=== PATIENT | female | born 1990 | race American Indian/Alaskan Native ===

== ENCOUNTER 2016-09-07 06:33 | Emergency (ER) | payer MEDICAID ==
[2016-09-07 07:21] VITALS: BMI 32.0
[2016-09-07 07:24] VITALS: O2SAT 100
--- NOTE | 2016-09-07 08:32 | ED PDOC ---
Arrival/HPI - General Chief Complaint: Lower Extremity Problem/Injury Time Seen by Provider: 09/07/16 08:28 Historian: Patient - History of Present Illness Narrative History of Present Illness (Text): 09/07/16 11:27 26-year-old female in emergency department after a mechanical fall. States this happened just before she came to the emergency department. Now patient is complaining of left ankle, left foot, and right knee pain. Denies any head trauma or torso trauma/injury. Denies any upper extremity injury. Symptom Course: Unchanged Activities at Onset: Rest Past Medical History - Provider Review Nursing Documentation Reviewed: Yes - Past History Past History: No Previous - Infectious Disease Hx of Infectious Diseases: None - Tetanus Immunization Tetanus Immunization: Unknown - Past Medical History Past Medical History: No Previous - Hematological/Oncological Hx Anemia: Yes - Musculoskeletal/Rheumatological Hx Musculoskeletal Disorders: Yes Other/Comment: Patients states that she has been told her "spine is crooked". - Gastrointestinal Other/Comment: pre menstrual cramps - Psychiatric Hx Depression: No Hx Emotional Abuse: No Hx Physical Abuse: No Hx Substance Use: No - Past Surgical History Past Surgical History: No Previous - Anesthesia Hx Anesthesia: No Hx Anesthesia Reactions: No Hx Malignant Hyperthermia: No - Suicidal Assessment Feels Threatened In Home Enviroment: No Family/Social History - Physician Review Nursing Documentation Reviewed: Yes Family/Social History: No Known Family HX Smoking Status: Light Smoker < 10 Cigarettes Daily Hx Alcohol Use: No Hx Substance Use: No Hx Substance Use Treatment: No Allergies/Home Meds Allergies/Adverse Reactions: Allergies No Known Allergies Allergy (Verified 09/07/16 07:21) Home Medications: Home Meds Medication Instructions Recorded Confirmed Ferrous Sulfate [Ferosul] 325 mg PO DAILY 03/29/16 09/07/16 Review of Systems - Physician Review All systems were reviewed & negative as marked: Yes Physical Exam - Physical Exam Narrative Physical Exam (Text): 09/07/16 11:29 - Review of Systems Constitutional: Normal. absent: Fatigue, Weight Change, Fevers Eyes: Normal ENT: denies sore throat, denies tristhmus Respiratory: Normal. absent: SOB, Cough, Sputum Cardiovascular: absent: Chest Pain, Palpitations, Syncope Gastrointestinal: Normal. absent: Abdominal Pain, Diarrhea, Nausea, Vomiting Genitourinary: Normal. absent: Dysuria, Frequency, Hematuria, vaginal bleeding Musculoskeletal: Full absent: Back Pain, Neck Pain Skin: no rashes, no erythema Neurological: absent: Focal Weakness Endocrine: Normal Hemo/Lymphatic: Normal Psychiatric: No suicidal or homicidal ideations Physical exam Patient appears age appropriate in no distress, speaking full sentences without difficulty Head atraumatic. No nasal bone deformity or tenderness, no facial or jaw pain/ swelling. No neck midline tenderness, thoracic and lumbar spine with no midline tenderness. Pt moving b/l upper and lower extremities without difficulty, 5/5 strength, with full active and passive ROM. Distal neurovasc fully intact. Abd soft/nt/ng, no hematomas, no peritoneal signs. Neg. pelvic rock. - Systems Exam Head: Present: Atraumatic, Normocephalic Pupils: Present: PERRL Extroacular Muscles: Present: EOMI Conjunctiva: Present: Normal Mouth: Present: Moist Mucous Membranes Neck: Present: Normal Range of Motion. No: MIDLINE TENDERNESS, Paraspinal Tenderness Respiratory/Chest: Present: Clear to Auscultation, Good Air Exchange. No: Respiratory Distress, Accessory Muscle Use, Tachypneic Cardiovascular: Present: Regular Rate and Rhythm, Normal S1, S2, Peripheal Pulses Present. No: Murmurs Abdomen: Present: Normal Bowel Sounds. No: Tenderness, Distention, Peritoneal Signs, Rebound, Guarding Back: Present: Normal Inspection. No: Midline Tenderness, Paraspinal Tenderness Upper Extremity: Present: Normal Inspection. No: Cyanosis, Edema Lower Extremity: Present: Normal Inspection. No: Edema Neurological: Present: GCS=15, Speech Normal, cranial nerves II through XII fully intact with no cerebellar abnormality, neurosensory fully intact. No focal neurological deficits. Skin: Present: Warm, Dry, Normal Color. No: Rashes Lymphatic: Present: OX3, NI, NC Psychiatric: Present: Alert, Oriented x 3, Normal Insight, Normal Concentration Vital Signs Reviewed: Yes Vital Signs Temp Pulse Resp BP Pulse Ox 09/07/16 11:40 79 18 115/75 100 09/07/16 10:24 98.4 F 88 18 113/76 100 09/07/16 07:24 98.2 F 86 17 105/69 100 Temperature: Afebrile Blood Pressure: Normal Pulse: Regular Respiratory Rate: Normal Appearance: Positive for: Well-Appearing, Non-Toxic, Comfortable Pain Distress: None Mental Status: Positive for: Alert and Oriented X 3 Medical Decision Making ED Course and Treatment: 09/07/16 08:31 Impression: 26yo female in the ER after a mechanical fall, with L. ankle and foot pain, R. knee pain On physical exam, patient no acute findings. It has no pain at the base of fifth metatarsal on the left, left ankle with full active and passive range of motion with no tenderness over the ATF. Patient's right knee with full active and passive range of motion with negative anterior and posterior drawer tests. Bilateral lower extremities with distal neurovascular fully intact. Patient ambulating in the emergency department with steady gait. Differential Diagnosis include but are not limited to: Sprain versus strain versus fracture Plan: -- Radiology- L ankle, L foot, R knee, R knee w patella -- Reassess and disposition Prior Visits: Notes and results from previous visits were reviewed. Patient last seen in the ED on 07/26/16 for evaluation of left sided abdominal pain and nausea. Patient was discharged with H2 lissett, advised close follow up with gynecology and PMD. Progress Notes: Radiology- Left ankle: Creator : David Abernathy MD IMPRESSION: Normal left ankle radiographs. Left foot: Creator : David Abernathy MD IMPRESSION: Normal left foot radiographs. Right knee: Creator : David Abernathy MD IMPRESSION: Normal radiographs of the right knee. 09/07/16 11:25 No acute findings on patient's radiology reports Aircast and crutches provided had an extensive d/w pt that although xrays are negative for any acute bony abnormality, it is still very important to fu with pmd and ortho specialist for further w/u and testing such as MRI to r/o any ligamentous/tendenous/meniscal injury. Pt verbalized full understanding of above discussion. Pt states she understands to return to the ER right away for new or worsening symptoms or for inability to f/u with PMD or specialist as instructed. Patient states that she fully agrees with and understands discharge instructions. States that she agrees with the plan and disposition. Verbalized and repeated discharge instructions and plan. I have given the patient opportunity to ask any additional questions. - RAD Interpretation Radiology Orders: 09/07/16 08:28 ANKLE LEFT 3 VIEWS ROUTINE [RAD] Stat FOOT LEFT 3 VIEWS ROUTINE [RAD] Stat 09/07/16 08:37 KNEE RIGHT 2 VIEWS (AP & LAT) [RAD] Stat - Scribe Statement The provider has reviewed the documentation as recorded by the Scribe Stephanie Osman All medical record entries made by the Scribe were at my direction and personally dictated by me. I have reviewed the chart and agree that the record accurately reflects my personal performance of the history, physical exam, medical decision making, and the department course for this patient. I have also personally directed, reviewed, and agree with the discharge instructions and disposition. Disposition/Present on Arrival - Present on Arrival Any Indicators Present on Arrival: No History of DVT/PE: No History of Uncontrolled Diabetes: No Urinary Catheter: No History of Decub. Ulcer: No History Surgical Site Infection Following: None - Disposition Have Diagnosis and Disposition been Completed?: Yes Diagnosis: Fall Disposition: HOME/ ROUTINE Disposition Time: 11:30 Patient Plan: Discharge Condition: GOOD Discharge Instructions (ExitCare): Foot Sprain (ED) Additional Instructions: PLEASE RETURN TO THE EMERGENCY DEPARTMENT FOR NEW OR WORSENING SYMPTOMS. RETURN RIGHT AWAY IF YOU CANNOT FOLLOW UP WITH YOUR PRIMARY CARE DOCTOR, CLINIC, OR SPECIALIST IN 1-2 DAYS. Please take [id number] Motrin or Tylenol for pain Referrals: PCP,NO [Primary Care Provider] - Follow up with primary David Arguello DO [Staff Provider] - Follow up with primary Forms: WORK NOTE
[2016-09-07 10:25] VITALS: RESP 18; TEMP 98.4
--- NOTE | 2016-09-07 11:01 | RAD ---
PROCEDURE: Left Foot Radiographs. HISTORY: pain COMPARISON: None. FINDINGS: BONES: Normal. No fracture. JOINTS: Normal. SOFT TISSUES: Normal. OTHER FINDINGS: None. IMPRESSION: Normal left foot radiographs.
--- NOTE | 2016-09-07 11:02 | RAD ---
PROCEDURE: Left Ankle Radiographs. HISTORY: pain COMPARISON: None FINDINGS: BONES: Normal. No fracture. JOINTS: Normal. No osteoarthritis. Ankle mortise maintained. Talar dome intact SOFT TISSUES: Normal. OTHER FINDINGS: None. IMPRESSION: Normal left ankle radiographs.
--- NOTE | 2016-09-07 11:02 | RAD ---
PROCEDURE: Right Knee Radiographs. HISTORY: knee pain COMPARISON: None. FINDINGS: BONES: Normal. No fracture. JOINTS: Normal. No osteoarthritis. JOINT EFFUSION: None. OTHER FINDINGS: None. IMPRESSION: Normal radiographs of the right knee.
[2016-09-07 11:41] VITALS: BP 115/75; PULSE 79
== END 2016-09-07 11:56 | disposition home or self-care (01) ==
LOC: ED 06:33
DX: S93.602A Unspecified sprain of left foot, initial encounter (principal); W19.XXXA Unspecified fall, initial encounter; Y92.9 Unspecified place or not applicable

== ENCOUNTER 2017-01-07 11:05 | Emergency (ER) | payer MEDICAID, OTHER ==
[2017-01-07 11:12] VITALS: BMI 33.2
[2017-01-07 11:14] VITALS: TEMP 98.5
--- NOTE | 2017-01-07 11:33 | ED PDOC ---
Arrival/HPI - General Chief Complaint: Chest Pain Time Seen by Provider: 01/07/17 11:09 Historian: Patient - History of Present Illness Narrative History of Present Illness (Text): 01/07/17 11:26 A 26 year old female with no known past medical history, presents to the emergency department with shortness of breath for several weeks and chest discomfort since this morning. She denies fevers, chills, nausea, vomiting, diarrhea, abdominal pain, [place], dizziness, cough or any other complaint. pt has not see her pmd. pt states pain and symtpoms are intermittant w/o inciting factor. no smoking, no family cardiac hx. 01/07/17 12:35 Time/Duration: Other (Several weeks) Symptom Onset: Sudden Symptom Course: Unchanged Quality: Pressure Activities at Onset: Rest, Light Context: Home Past Medical History - Provider Review Nursing Documentation Reviewed: Yes - Past History Past History: No Previous - Infectious Disease Hx of Infectious Diseases: None - Tetanus Immunization Tetanus Immunization: Unknown - Past Medical History Past Medical History: No Previous - Cardiac Hx Cardiac Disorders: No - Pulmonary Hx Respiratory Disorders: No - Neurological Hx Neurological Disorder: No - HEENT Hx HEENT Disorder: No - Renal Hx Renal Disorder: No - Endocrine/Metabolic Hx Endocrine Disorders: No - Hematological/Oncological Hx Blood Disorders: Yes Hx Anemia: Yes - Integumentary Hx Dermatological Disorder: No - Musculoskeletal/Rheumatological Hx Musculoskeletal Disorders: Yes Other/Comment: Patients states that she has been told her "spine is crooked". - Gastrointestinal Hx Gastrointestinal Disorders: No Other/Comment: pre menstrual cramps - Genitourinary/Gynecological Hx Genitourinary Disorders: No - Psychiatric Hx Depression: No Hx Emotional Abuse: No Hx Physical Abuse: No Hx Substance Use: No - Past Surgical History Past Surgical History: No Previous - Anesthesia Hx Anesthesia: No Hx Anesthesia Reactions: No Hx Malignant Hyperthermia: No - Suicidal Assessment Feels Threatened In Home Enviroment: No Family/Social History - Physician Review Nursing Documentation Reviewed: Yes Family/Social History: No Known Family HX Smoking Status: Light Smoker < 10 Cigarettes Daily Hx Alcohol Use: No Hx Substance Use: No Hx Substance Use Treatment: No Allergies/Home Meds Allergies/Adverse Reactions: Allergies No Known Allergies Allergy (Verified 01/07/17 11:12) Review of Systems - Physician Review All systems were reviewed & negative as marked: Yes - Review of Systems Constitutional: absent: Fevers, Night Sweats Respiratory: SOB. absent: Cough Cardiovascular: Chest Pain (Pressure) Gastrointestinal: absent: Abdominal Pain, Diarrhea, Nausea, Vomiting Neurological: absent: Headache, Dizziness Physical Exam Vital Signs Reviewed: Yes Vital Signs Temp Pulse Resp BP Pulse Ox 01/07/17 11:05 98.5 F 88 19 130/82 100 Temperature: Afebrile Blood Pressure: Normal Pulse: Regular Respiratory Rate: Normal Appearance: Positive for: Well-Appearing, Non-Toxic, Comfortable Pain Distress: None Mental Status: Positive for: Alert and Oriented X 3 - Systems Exam Head: Present: Atraumatic, Normocephalic Pupils: Present: PERRL Extroacular Muscles: Present: EOMI Conjunctiva: Present: Normal Mouth: Present: Moist Mucous Membranes Neck: Present: Normal Range of Motion Respiratory/Chest: Present: Clear to Auscultation, Good Air Exchange, Tender to Palpation (mild chest wall tenderness). No: Respiratory Distress, Accessory Muscle Use Cardiovascular: Present: Regular Rate and Rhythm, Normal S1, S2. No: Murmurs Abdomen: Present: Normal Bowel Sounds. No: Tenderness, Distention, Peritoneal Signs Back: Present: Normal Inspection Upper Extremity: Present: Normal Inspection. No: Cyanosis, Edema Lower Extremity: Present: Normal Inspection. No: Edema Neurological: Present: GCS=15, CN II-XII Intact, Speech Normal Skin: Present: Warm, Dry, Normal Color. No: Rashes Psychiatric: Present: Alert, Oriented x 3, Normal Insight, Normal Concentration Medical Decision Making ED Course and Treatment: 01/07/17 11:34 Impression: A 26 year old female with SOB for several weeks and chest discomfort since this morning. Plan: -- EKG -- CXR -- UA -- Labs -- Tylenol EKG: Read and interpreted by me. Rate: 79 Rhythm: NSR Intervals: ST/T wave changes CHEST X-RAY Dictator : David Abernathy MD Report Date : 01/07/2017 12:23:25 LUNGS: No active pulmonary disease. 01/07/17 12:36 pt in nad in bed, on phone, watching tv. labs cxr unremarkable. dimer neg. ekg no changes, pt young, no cardiac risk factors. acs unlikely. advse outpt fu return precautions - Lab Interpretations Lab Results: 01/07/17 12:00 01/07/17 12:00 Lab Results 01/07/17 12:00: Urine HCG, Qual Negative 01/07/17 12:00: PT 10.9, INR 1.01, APTT 28.4, D-Dimer, Quantitative 0.29 01/07/17 12:00: Sodium 142, Potassium 3.9, Chloride 106, Carbon Dioxide 27, Anion Gap 13, BUN 11, Creatinine 0.8, Est GFR ( Amer) > 60, Est GFR (Non- Af Amer) > 60, Random Glucose 70, Calcium 9.2, Total Bilirubin 0.3, AST 28, ALT 27, Alkaline Phosphatase 88, Total Protein 7.4, Albumin 3.8, Globulin 3.6, Albumin/Globulin Ratio 1.1 01/07/17 12:00: Urine Color Yellow, Urine Appearance Clear, Urine pH 6.5, Ur Specific [place] 1.020, Urine Protein Negative, Urine Glucose (UA) Negative, Urine Ketones Trace H, Urine Blood Trace-lysed H, Urine Nitrate Negative, Urine Bilirubin Negative, Urine Urobilinogen 0.2, Ur Leukocyte Esterase Negative, Urine RBC Pending, Urine WBC Pending 01/07/17 12:00: WBC 9.2, RBC 4.63, Hgb 10.3 L, Hct 33.0 L, MCV 71.3 L, MCH 22.2 L, MCHC 31.2, RDW 17.4 H, Plt Count 319, MPV 9.5, Gran % 73.1 H, Lymph % (Auto) 19.0 L, [place] % (Auto) 6.3 H, Eos % (Auto) 1.3 L, Baso % (Auto) 0.3, Gran # 6.74 H, Lymph # 1.8, [place] # 0.6, Eos # 0.1, Baso # 0.03 I have reviewed the lab results: Yes - RAD Interpretation Radiology Orders: 01/07/17 11:23 CHEST PORTABLE [RAD] Stat - EKG Interpretation Interpreted by ED Physician: Yes Type: 12 lead EKG - Medication Orders Current Medication Orders: Discontinued Medications Acetaminophen (Tylenol 325mg Tab) 975 mg PO STAT STA Stop: 01/07/17 11:25 Last Admin: 01/07/17 11:38 Dose: 975 mg - Scribe Statement The provider has reviewed the documentation as recorded by the Jorge Tejada Provider Scribe Attestation: All medical record entries made by the Jorge were at my direction and personally dictated by me. I have reviewed the chart and agree that the record accurately reflects my personal performance of the history, physical exam, medical decision making, and the department course for this patient. I have also personally directed, reviewed, and agree with the discharge instructions and disposition Disposition/Present on Arrival - Present on Arrival Any Indicators Present on Arrival: No History of DVT/PE: No History of Uncontrolled Diabetes: No Urinary Catheter: No History of Decub. Ulcer: No History Surgical Site Infection Following: None - Disposition Have Diagnosis and Disposition been Completed?: Yes Diagnosis: Chest pain Disposition: HOME/ ROUTINE Disposition Time: 12:36 Patient Problems: Current Active Problems Problem Status Onset Chest pain Acute Condition: STABLE Discharge Instructions (ExitCare): Chest Pain (ED) Additional Instructions: please follow up with specialist. return to er with worsening symptoms or concerns. Prescriptions: Naproxen 500 mg PO BID PRN #14 tab PRN Reason: Pain, Mild (1-3) Referrals: Esther Garay MD [Primary Care Provider] - Follow up with primary David Garcia MD [Staff Provider] - Follow up with primary [facility] [Outside] - Follow up with primary [facility] [Outside] - Follow up with primary Forms: [employer] (Indonesian)
[2017-01-07 12:04] LABS: BASO # 0.03 K/mm3 (0.0-2.0); BASO % 0.3 % (0.0-3.0); EOS # 0.1 (0.0-0.7); EOS % 1.3 % (1.5-5.0); GRAN # 6.74 (1.4-6.5); GRAN % 73.1 % (50.0-68.0); LYMPH # 1.8 (1.2-3.4); MEAN CELL VOLUME 71.3 fl (80.0-105.0); MEAN CORPUSCULAR HEMOGLOBIN 22.2 pg (25.0-35.0); MEAN CORPUSCULAR HGB CONC 31.2 g/dl (31.0-37.0); MEAN PLATELET VOLUME 9.5 fl (7.0-11.0); MONO # 0.6 (0.1-0.6); MONO % 6.3 % (1.0-6.0); RED CELL DISTRIBUTION WIDTH 17.4 % (11.5-14.5); WHITE BLOOD COUNT 9.2 10^3/ul (4.5-11.0)
[2017-01-07 12:11] LABS: PH,URINE 6.5 (4.7-8.0); URINE BILIRUBIN NEGATIVE (NEGATIVE); URINE BLOOD TRACE-LYSED (NEGATIVE); URINE GLUCOSE (UA) NEGATIVE (NEGATIVE); URINE KETONE TRACE mg/dL (NEGATIVE); URINE LEUKOCYTE ESTERASE NEGATIVE Leu/uL (NEGATIVE); URINE PROTEIN NEGATIVE mg/dL (<30 mg/dL); URINE UROBILINOGEN 0.2 E.U./dL (<1 E.U./dL)
[2017-01-07 12:16] LABS: ALB/GLOB RATIO 1.1 (1.1-1.8); ALKALINE PHOSPHATASE 88 U/L (38-133); ALT/SGPT 27 U/L (7-56); AST/SGOT 28 U/L (15-39); BILIRUBIN,TOTAL 0.3 mg/dL (0.2-1.3); BLOOD UREA NITROGEN 11 mg/dL (7-21); CALCIUM 9.2 mg/dL (8.4-10.5); CARBON DIOXIDE 27 mmol/L (21-33); CHLORIDE 106 mmol/L (98-107); GFR AFRICAN-AMERICAN > 60; GLUCOSE,RANDOM 70 mg/dL (70-110); POTASSIUM 3.9 mmol/L (3.6-5.0); SODIUM 142 mmol/L (132-148); TOTAL PROTEIN 7.4 g/dL (5.8-8.3)
[2017-01-07 12:20] LABS: URINE APPEARANCE CLEAR (CLEAR); URINE COLOR YELLOW (YELLOW)
--- NOTE | 2017-01-07 12:25 | RAD ---
HISTORY: cp COMPARISON: No prior. FINDINGS: LUNGS: No active pulmonary disease. PLEURA: No significant pleural effusion identified, no pneumothorax apparent. CARDIOVASCULAR: Normal. OSSEOUS STRUCTURES: No significant abnormalities. VISUALIZED UPPER ABDOMEN: Normal. OTHER FINDINGS: None. IMPRESSION: No active disease.
[2017-01-07 12:29] LABS: D DIMER 0.29 mg/L FEU (0-0.50); INR 1.01 (0.93-1.08); PARTIAL THROMBOPLASTIN TIME 28.4 Seconds (23.7-30.8)
[2017-01-07 12:51] LABS: URINE BACTERIA SMALL (NEG); URINE RBC 0 - 2 /hpf (0-2); URINE WBC 0 - 2 /hpf (0-6)
[2017-01-07 13:21] VITALS: BP 109/68; PULSE 72; RESP 18; O2SAT 98
--- NOTE | 2017-01-07 19:55 | CARD ---
APPROVED REPORT EKG Measurement Heart [id number] <Conclusion> Normal sinus rhythm Minimal voltage criteria for LVH, may be normal variant Borderline ECG
== END 2017-01-07 13:10 | disposition home or self-care (01) ==
LOC: ED 11:05
DX: R07.9 Chest pain, unspecified (principal)

== ENCOUNTER 2017-06-13 23:03 | Emergency (ER) | payer OTHER ==
[2017-06-13 23:29] VITALS: RESP 18; O2SAT 98; BMI 34.2
[2017-06-13] MEDS ORDERED: Sodium Chloride 0.9% 1,000 ML IV STA (23:40)
--- NOTE | 2017-06-13 23:47 | ED PDOC ---
Arrival/HPI - General Chief Complaint: GI Problem Time Seen by Provider: 06/13/17 23:39 Historian: Patient - History of Present Illness Narrative History of Present Illness (Text): 06/13/17 23:44 27 y/o female, pmh including ovarian cyst, nkda, c/o nausea/vomiting/diarrhea with lower abdominal pain plus fever. Pt. stated that she woke up this morning with nausea/vomiting/diarrhea, left lower abdominal pain, no chest pain or palpitation, no rash, no night sweat, no dizziness, no change in vision, no other medical or psychological complaints. Past Medical History - Provider Review Nursing Documentation Reviewed: Yes - Past History Past History: No Previous - Infectious Disease Hx of Infectious Diseases: None - Tetanus Immunization Tetanus Immunization: Unknown - Past Medical History Past Medical History: No Previous - Cardiac Hx Cardiac Disorders: No - Pulmonary Hx Respiratory Disorders: No - Neurological Hx Neurological Disorder: No - HEENT Hx HEENT Disorder: No - Renal Hx Renal Disorder: No - Endocrine/Metabolic Hx Endocrine Disorders: No - Hematological/Oncological Hx Blood Disorders: Yes Hx Anemia: Yes - Integumentary Hx Dermatological Disorder: No - Musculoskeletal/Rheumatological Hx Musculoskeletal Disorders: Yes Other/Comment: Patients states that she has been told her "spine is crooked". - Gastrointestinal Hx Gastrointestinal Disorders: No Other/Comment: pre menstrual cramps - Genitourinary/Gynecological Hx Genitourinary Disorders: No - Psychiatric Hx Depression: No Hx Emotional Abuse: No Hx Physical Abuse: No Hx Substance Use: No - Past Surgical History Past Surgical History: No Previous - Anesthesia Hx Anesthesia: No Hx Anesthesia Reactions: No Hx Malignant Hyperthermia: No - Suicidal Assessment Feels Threatened In Home Enviroment: No Family/Social History - Physician Review Nursing Documentation Reviewed: Yes Family/Social History: Unknown Family HX Smoking Status: Light Smoker < 10 Cigarettes Daily Hx Alcohol Use: No Hx Substance Use: No Hx Substance Use Treatment: No Allergies/Home Meds Allergies/Adverse Reactions: Allergies No Known Allergies Allergy (Verified 01/07/17 11:12) Review of Systems - Review of Systems Constitutional: absent: Fatigue, Fevers Eyes: absent: Vision Changes ENT: absent: Hearing Changes Respiratory: absent: SOB, Cough Cardiovascular: absent: Chest Pain Gastrointestinal: Abdominal Pain, Diarrhea, Nausea, Vomiting Musculoskeletal: absent: Arthralgias, Back Pain Skin: absent: Rash, Pruritis Neurological: absent: Headache, Dizziness Psychiatric: absent: Anxiety, Depression Physical Exam Vital Signs Reviewed: Yes Vital Signs Temp Pulse Resp BP Pulse Ox 06/14/17 01:25 99 F 90 18 116/70 98 06/13/17 23:29 100.1 F H 94 H 18 127/83 98 Temperature: Afebrile Blood Pressure: Normal Pulse: Regular Respiratory Rate: Normal Appearance: Positive for: Well-Appearing, Non-Toxic, Comfortable Pain Distress: None Mental Status: Positive for: Alert and Oriented X 3 - Systems Exam Head: Present: Atraumatic, Normocephalic Pupils: Present: PERRL Extroacular Muscles: Present: EOMI Conjunctiva: Present: Normal Ears: Present: NORMAL TM, Normal Canal. No: Erythema Mouth: Present: Moist Mucous Membranes Neck: Present: Normal Range of Motion Respiratory/Chest: Present: Clear to Auscultation, Good Air Exchange. No: Respiratory Distress, Accessory Muscle Use Cardiovascular: Present: Regular Rate and Rhythm, Normal S1, S2. No: Murmurs Abdomen: Present: Tenderness (periumbilical and LLQ ), Normal Bowel Sounds. No : Distention, Peritoneal Signs, Rebound, Guarding Back: Present: Normal Inspection Upper Extremity: Present: Normal Inspection. No: Cyanosis, Edema Lower Extremity: Present: Normal Inspection. No: Edema Neurological: Present: GCS=15, Speech Normal, Motor Func Grossly Intact, Gait Normal, Memory Normal Skin: Present: Warm, Dry, Normal Color. No: Rashes Psychiatric: Present: Alert, Oriented x 3, Normal Insight, Normal Concentration Medical Decision Making ED Course and Treatment: 06/13/17 23:47 -labs/ua/rapid flu -CT abdomen and pelvis -IVF/reglan/tylenol -observe and reassess 06/14/17 02:00 -labs are non-significant. -UA show no UTI -Rapid flu is negative -Sonogram show Right ovarian simple dominant follicle measuring 1.3 x 1.1 x 1.2 cm . -CT abdomen and pelvis show Diverticulosis. There are nonspecific fluid filled small bowel loops and colon. These findings can represent ileus versus enterocolitis versus slow transit versus peristalsis. No obstruction. -Pt. has fever with colitis findings, LLQ pain, will treat as colitis, cipro and flagyl ordered -Pain resolved, feeling much better after the IV medications, cipro and flagyl ordered -I discussed about the side effects of the cipro and flagyl including but not limited to prolong QT and achilles tendon rupture, pt. verbally expressed understanding. -Discharge home with cipro, flagyl, pepcid, naproxen, bed rest, follow up with your own pmd and GI within 2 days, high fiber diets, avoid seeds, stay hydrated , return to the ER for any new or worsening signs or symptoms. - Lab Interpretations Lab Results: 06/13/17 23:40 06/13/17 23:40 Lab Results 06/14/17 00:30: Influenza Typ A,B (EIA) Negative for flu a/b 06/14/17 00:30: Urine Color Yellow, Urine Appearance Clear, Urine pH 6.5, Ur Specific [place] 1.010, Urine Protein Negative, Urine Glucose (UA) Negative, Urine Ketones Negative, Urine Blood Trace-lysed H, Urine Nitrate Negative, Urine Bilirubin Negative, Urine Urobilinogen 0.2, Ur Leukocyte Esterase Negative , Urine RBC 0 - 2, Urine WBC 0 - 2, Ur Epithelial Cells 1 - 3, Urine Bacteria Rare 06/13/17 23:40: Beta HCG, Quant < 2.39 06/13/17 23:40: pO2 26 L, VBG pH 7.35, VBG pCO2 48.0, VBG HCO3 26.5, VBG Total CO2 28.0, VBG O2 Sat (Calc) 57.5, VBG Base Excess 0.3, VBG Potassium 3.9, Sodium 137.0, Chloride 101.0, Glucose 92, Lactate 0.9, FiO2 21.0, Venous Blood Potassium 3.9 06/13/17 23:40: Sodium 136, Chloride 101, Potassium 4.0, Carbon Dioxide 26, Anion Gap 14, BUN 10, Creatinine 0.8, Est GFR ( Amer) > 60, Est GFR (Non- Af Amer) > 60, Random Glucose 91, Calcium 9.8, Total Bilirubin 0.7, AST 57 H, ALT 28, Alkaline Phosphatase 122, Total Protein 8.1, Albumin 4.1, Globulin 4.0, Albumin/Globulin Ratio 1.0 L, Lipase 38 06/13/17 23:40: WBC 7.1 D, RBC 4.97, Hgb 11.2 L, Hct 35.9 L, MCV 72.2 L, MCH 22.5 L, MCHC 31.2, RDW 16.2 H, Plt Count 332, MPV 10.0, Gran % 81.4 H, Lymph % ( Auto) 12.5 L, [place] % (Auto) 5.9, Eos % (Auto) 0.1 L, Baso % (Auto) 0.1, Gran # 5.81, Lymph # 0.9 L, [place] # 0.4, Eos # 0.0, Baso # 0.01 - RAD Interpretation Radiology Orders: 06/13/17 23:43 ABDOMEN & PELVIS [ABD & PELVIS IV CONTRAST ONLY] [CT] Stat 06/13/17 23:44 TRANSVAGINAL [US] Stat Transvaginal sonogram: FINDINGS: Uterus/cervix: The uterus is anteverted and measures 7.8 x 4.3 x 5.5 cm. The endometrial stripe measures 8-11 mm. No myometrial mass. Right ovary: Right ovarian simple dominant follicle measuring 1.3 x 1.1 x 1 point cm The right ovary measures 2.8 x 2.3 x 2.4 cm. Duplex assessment demonstrates presence of color Doppler signal and spectral Doppler waveform in right ovary. No torsion. Left ovary: The left ovary measures 2.2 x 2.0 x 2.2 cm. Duplex assessment demonstrates presence of color Doppler signal and spectral Doppler waveform in left ovary. No torsion. Free fluid: No free fluid. Bladder: Suboptimally distended bladder. IMPRESSION: Right ovarian simple dominant follicle measuring 1.3 x 1.1 x 1.2 cm . Thank you for allowing us to participate in the care of your patient. Dictated and Authenticated by: Kita Feliciano MD KELLY, RASHEITA | Final Radiology Report CONFIDENTIALITY STATEMENT This report is intended only for use by the referring physician, and only in accordance with law. If you received this in error, call [phone]. Page 2 of 2 06/14/2017 1:34 AM Eastern Time ([place] & [place]) CT Abdomen and pelvis: FINDINGS: Lower thorax: Small hiatal hernia. ABDOMEN: Liver: Fatty liver. Gallbladder and bile ducts: Unremarkable. No ductal dilation. Pancreas: Unremarkable. No mass. No ductal dilation. Spleen: Unremarkable. No splenomegaly. Adrenals: Unremarkable. No mass. Kidneys and ureters: Unremarkable. No solid mass. No hydronephrosis. Stomach and bowel: Diverticulosis. There are nonspecific fluid filled small bowel loops and colon. These findings can represent ileus versus enterocolitis versus slow transit versus peristalsis. No obstruction. Appendix: Normal caliber appendix. PELVIS: LUIS BRAND | Final Radiology Report CONFIDENTIALITY STATEMENT This report is intended only for use by the referring physician, and only in accordance with law. If you received this in error, call [phone]. Page 2 of 2 Bladder: Partially decompressed bladder with bladder wall thickening. Correlation with urinalysis is recommended only if clinical cystitis is suspected. Reproductive: Uterus is seen. Bilateral ovarian follicles. ABDOMEN and PELVIS: Intraperitoneal space: Unremarkable. No free air. No significant fluid collection. Bones/joints: No acute fracture. No dislocation. Soft tissues: There is a fat-containing umbilical hernia. Vasculature: Unremarkable. No abdominal aortic aneurysm. Lymph nodes: Unremarkable. No enlarged lymph nodes. IMPRESSION: No acute findings. Thank you for allowing us to participate in the care of your patient. Dictated and Authenticated by: Kita Feliciano MD 06/14/2017 1:41 AM Eastern Time ([place] & [place]) Accounting Manager Assistant Controller: Radiologist - Medication Orders Current Medication Orders: Discontinued Medications Acetaminophen (Tylenol 325mg Tab) 650 mg PO STAT STA Stop: 06/13/17 23:41 Last Admin: 06/14/17 00:36 Dose: 650 mg Comments: MAR Pain/Vitals Document 06/14/17 00:36 RD (Rec: 06/14/17 00:36 RD [id number]) Pain Reassessment Is This A Pain ReAssessment? No Sleep Is patient sleeping during reassessment? No Presence of Pain Presence of Pain No Ciprofloxacin (Cipro) 500 mg PO ONCE STA PRN Reason: Protocol Stop: 06/14/17 01:59 Last Admin: 06/14/17 02:16 Dose: 500 mg Sodium Chloride (Sodium Chloride 0.9%) 1,000 mls @ 999 mls/hr IV .Q1H1M STA Stop: 06/14/17 00:40 Last Admin: 06/14/17 00:11 Dose: 999 mls/hr eMAR Start Stop Document 06/14/17 00:11 RD (Rec: 06/14/17 00:11 RD [id number]) Intravenous Solution Start Date 06/14/17 Start Time 00:11 End Date 06/14/17 End time 01:11 Total Infusion Time 60 Metoclopramide HCl (Reglan) 10 mg IVP STAT STA Stop: 06/13/17 23:44 Last Admin: 06/14/17 00:11 Dose: 10 mg IVP Administration Document 06/14/17 00:11 RD (Rec: 06/14/17 00:11 RD [id number]) Charges for Administration # of IVP Administrations 1 Metronidazole (Flagyl) 500 mg PO STAT STA PRN Reason: Protocol Stop: 06/14/17 01:59 Last Admin: 06/14/17 02:16 Dose: 500 mg - PA / NURSE DISCHARGE PLANNER / Resident Statement /DO has reviewed & agrees with the documentation as recorded. Disposition/Present on Arrival - Present on Arrival Any Indicators Present on Arrival: Yes History of DVT/PE: No History of Uncontrolled Diabetes: No Urinary Catheter: No History of Decub. Ulcer: No History Surgical Site Infection Following: None - Disposition Have Diagnosis and Disposition been Completed?: Yes Diagnosis: Colitis, Ovarian cyst Disposition: HOME/ ROUTINE Disposition Time: 02:02 Patient Plan: Discharge Condition: IMPROVED Additional Instructions: Discharge home with cipro, flagyl, pepcid, naproxen, bed rest, follow up with your own pmd and GI within 2 days, high fiber diets, avoid seeds, stay hydrated , return to the ER for any new or worsening signs or symptoms. Prescriptions: Ciprofloxacin/Ciprofloxa HCl [Ciprofloxacin] 500 mg PO BID #20 tab Famotidine [Pepcid] 20 mg PO BID #20 tab metroNIDAZOLE [Flagyl] 500 mg PO TID #30 tab Naproxen 500 mg PO BID PRN #20 tab PRN Reason: Other Referrals: Franky West MD [Staff Provider] - Follow up with primary [facility] [place] - Follow up with primary Forms: WORK NOTE
[2017-06-14 00:24] LABS: BASO # 0.01 K/mm3 (0.0-2.0); BASO % 0.1 % (0.0-3.0); EOS % 0.1 % (1.5-5.0); GRAN # 5.81 (1.4-6.5); GRAN % 81.4 % (50.0-68.0); HEMOGLOBIN 11.2 g/dL (12.0-16.0); LYMPH # 0.9 (1.2-3.4); LYMPH % 12.5 % (22.0-35.0); MEAN CELL VOLUME 72.2 fl (80.0-105.0); MEAN CORPUSCULAR HEMOGLOBIN 22.5 pg (25.0-35.0); MEAN CORPUSCULAR HGB CONC 31.2 g/dl (31.0-37.0); MONO # 0.4 (0.1-0.6); MONO % 5.9 % (1.0-6.0); RBC 4.97 10^6/uL (3.5-6.1); RED CELL DISTRIBUTION WIDTH 16.2 % (11.5-14.5); WHITE BLOOD COUNT 7.1 10^3/ul (4.5-11.0)
[2017-06-14 00:37] LABS: VENOUS BLOOD GAS BASE EXCESS 0.3 mmol/L (0.0-2.0); VENOUS BLOOD GAS PO2 26 mm/Hg (30-55); VENOUS BLOOD PH 7.35 (7.32-7.43)
[2017-06-14 00:46] LABS: PH,URINE 6.5 (4.7-8.0); URINE BILIRUBIN NEGATIVE (NEGATIVE); URINE BLOOD TRACE-LYSED (NEGATIVE); URINE GLUCOSE (UA) NEGATIVE (NEGATIVE); URINE LEUKOCYTE ESTERASE NEGATIVE Leu/uL (NEGATIVE); URINE NITRATE NEGATIVE (NEGATIVE); URINE PROTEIN NEGATIVE mg/dL (<30 mg/dL); URINE UROBILINOGEN 0.2 E.U./dL (<1 E.U./dL)
[2017-06-14 00:49] LABS: ALBUMIN 4.1 g/dL (3.0-4.8); ALT/SGPT 28 U/L (7-56); AST/SGOT 57 U/L (14-36); BLOOD UREA NITROGEN 10 mg/dL (7-21); CALCIUM 9.8 mg/dL (8.4-10.5); GFR AFRICAN-AMERICAN > 60; GFR NON-AFRICAN AMERICAN > 60; LIPASE 38 U/L (23-300)
[2017-06-14 00:53] LABS: URINE COLOR YELLOW (YELLOW)
[2017-06-14 00:54] LABS: URINE APPEARANCE CLEAR (CLEAR)
[2017-06-14] MEDS ORDERED: Iodixanol 320 MG/ML 100 ML BOTTLE IV ONE (00:58)
[2017-06-14 01:04] LABS: URINE BACTERIA RARE (NEG); URINE RBC 0 - 2 /hpf (0-2); URINE WBC 0 - 2 /hpf (0-6)
[2017-06-14 01:26] VITALS: BP 116/70; PULSE 90; TEMP 99
--- NOTE | 2017-06-14 01:34 | US ---
EXAM: US Pelvis Complete, Transabdominal US Pelvis, Transvaginal US Duplex Arterial/Venous of the Pelvis, Complete CLINICAL HISTORY: 27 years old, female; Pain; Pelvic pain; Additional info: Left lower abdominal pain TECHNIQUE: Real-time transabdominal and transvaginal pelvic ultrasound (complete) with image documentation. Transvaginal imaging was used for better evaluation of the endometrium and adnexa. Real-time duplex ultrasound scan of the arterial and venous flow of the pelvis with color Doppler flow and spectral waveform analysis. COMPARISON: US - TRANSVAGINAL 2016-07-26 11:16 FINDINGS: Uterus/cervix: The uterus is anteverted and measures 7.8 x 4.3 x 5.5 cm. The endometrial stripe measures 8-11 mm. No myometrial mass. Right ovary: Right ovarian simple dominant follicle measuring 1.3 x 1.1 x 1 point cm The right ovary measures 2.8 x 2.3 x 2.4 cm. Duplex assessment demonstrates presence of color Doppler signal and spectral Doppler waveform in right ovary. No torsion. Left ovary: The left ovary measures 2.2 x 2.0 x 2.2 cm. Duplex assessment demonstrates presence of color Doppler signal and spectral Doppler waveform in left ovary. No torsion. Free fluid: No free fluid. Bladder: Suboptimally distended bladder. IMPRESSION: Right ovarian simple dominant follicle measuring 1.3 x 1.1 x 1.2 cm .
--- NOTE | 2017-06-14 01:41 | CT ---
EXAM: CT Abdomen and Pelvis With Intravenous Contrast CLINICAL HISTORY: 27 years old, female; Pain; Abdominal pain; Generalized; Additional info: Lower abdominal pain TECHNIQUE: Axial computed tomography images of the abdomen and pelvis with intravenous contrast. All CT scans at this facility use one or more dose reduction techniques, viz.: automated exposure control; ma/kV adjustment per patient size (including targeted exams where dose is matched to indication; i.e. head); or iterative reconstruction technique. 629 images are submitted. Coronal and sagittal reformatted images were created and reviewed. CONTRAST: 96 mL of VISI 320 administered intravenously. COMPARISON: CT - ABD PELVIS PO IV CONTRAST 2016-07-26 14:38 FINDINGS: Lower thorax: Small hiatal hernia. ABDOMEN: Liver: Fatty liver. Gallbladder and bile ducts: Unremarkable. No ductal dilation. Pancreas: Unremarkable. No mass. No ductal dilation. Spleen: Unremarkable. No splenomegaly. Adrenals: Unremarkable. No mass. Kidneys and ureters: Unremarkable. No solid mass. No hydronephrosis. Stomach and bowel: Diverticulosis. There are nonspecific fluid filled small bowel loops and colon. These findings can represent ileus versus enterocolitis versus slow transit versus peristalsis. No obstruction. Appendix: Normal caliber appendix. PELVIS: Bladder: Partially decompressed bladder with bladder wall thickening. Correlation with urinalysis is recommended only if clinical cystitis is suspected. Reproductive: Uterus is seen. Bilateral ovarian follicles. ABDOMEN and PELVIS: Intraperitoneal space: Unremarkable. No free air. No significant fluid collection. Bones/joints: No acute fracture. No dislocation. Soft tissues: There is a fat-containing umbilical hernia. Vasculature: Unremarkable. No abdominal aortic aneurysm. Lymph nodes: Unremarkable. No enlarged lymph nodes. IMPRESSION: No acute findings.
== END 2017-06-14 02:17 | disposition home or self-care (01) ==
LOC: ED 23:03
DX: K52.9 Noninfective gastroenteritis and colitis, unspecified (principal); N83.201 Unspecified ovarian cyst, right side
CPT/HCPCS: 74177; 76830; 80053; 81001; 82803; 83690; 84702; 85025; 87804; 96361; 96374; 99284; J2765; J7040; Q9967

== ENCOUNTER 2017-07-25 12:36 | Emergency (ER) | payer OTHER ==
--- NOTE | 2017-07-25 12:58 | ED PDOC ---
Arrival/HPI - General Chief Complaint: Chest Pain Time Seen by Provider: 07/25/17 12:46 Historian: Patient - History of Present Illness Time/Duration: Other (Yesterday) Symptom Onset: Gradual Symptom Course: Unchanged Quality: Aching Severity Level: Mild Activities at Onset: Rest Associated Symptoms (Text): 07/25/17 12:55 Patient complains of chest pain beginning yesterday. It is actually bilateral breast and chest wall pain. She denies any injury or trauma, though she does do heavy lifting at work. She states that she took some Tylenol yesterday and the pain has improved. No dyspnea. No cough congestion or URI. No abdominal pain nausea vomiting or diarrhea. She reports that she slept on her stomach and the breast and chest pain was worse this morning. She has never experienced this previously. No fever or chills. Past Medical History - Past History Past History: No Previous - Infectious Disease Hx of Infectious Diseases: None - Tetanus Immunization Tetanus Immunization: Unknown - Past Medical History Past Medical History: No Previous - Cardiac Hx Cardiac Disorders: No - Pulmonary Hx Respiratory Disorders: No - Neurological Hx Neurological Disorder: No - HEENT Hx HEENT Disorder: No - Renal Hx Renal Disorder: No - Endocrine/Metabolic Hx Endocrine Disorders: No - Hematological/Oncological Hx Blood Disorders: Yes Hx Anemia: Yes - Integumentary Hx Dermatological Disorder: No - Musculoskeletal/Rheumatological Hx Musculoskeletal Disorders: Yes Other/Comment: Patients states that she has been told her "spine is crooked". - Gastrointestinal Hx Gastrointestinal Disorders: No Other/Comment: pre menstrual cramps - Genitourinary/Gynecological Hx Genitourinary Disorders: No - Psychiatric Hx Depression: No Hx Emotional Abuse: No Hx Physical Abuse: No Hx Substance Use: No - Past Surgical History Past Surgical History: No Previous - Anesthesia Hx Anesthesia: No Hx Anesthesia Reactions: No Hx Malignant Hyperthermia: No - Suicidal Assessment Feels Threatened In Home Enviroment: No Family/Social History - Physician Review Nursing Documentation Reviewed: Yes Family/Social History: Unknown Family HX Smoking Status: Former Smoker Hx Alcohol Use: No Hx Substance Use: No Hx Substance Use Treatment: No Allergies/Home Meds Allergies/Adverse Reactions: Allergies No Known Allergies Allergy (Verified 07/25/17 12:50) Home Medications: Home Meds Medication Instructions Recorded Confirmed No Known Home Med 07/25/17 07/25/17 Review of Systems - Physician Review All systems were reviewed & negative as marked: Yes - Review of Systems Constitutional: Normal Respiratory: absent: SOB, Cough, Sputum, Wheezing Cardiovascular: Chest Pain. absent: Palpitations, Syncope Gastrointestinal: Diarrhea. absent: Abdominal Pain, Constipation, Nausea, Vomiting Genitourinary Female: absent: Dysuria, Frequency, Hematuria Neurological: absent: Headache, Dizziness, Focal Weakness Physical Exam Vital Signs Temp Pulse Resp BP Pulse Ox 07/25/17 12:47 98.7 F 81 18 119/74 98 Temperature: Afebrile Blood Pressure: Normal Pulse: Regular Respiratory Rate: Normal Appearance: Positive for: Well-Appearing, Non-Toxic, Comfortable Pain Distress: None Mental Status: Positive for: Alert and Oriented X 3 - Systems Exam Head: Present: Atraumatic, Normocephalic Pupils: Present: PERRL Extroacular Muscles: Present: EOMI Mouth: Present: Moist Mucous Membranes Pharnyx: No: ERYTHEMA, EXUDATE, TONSILS ENLARGED Neck: Present: Normal Range of Motion Respiratory/Chest: Present: Clear to Auscultation, Good Air Exchange, Tender to Palpation (Chest tenderness to palpation which does reproduce the pain). No: Respiratory Distress, Accessory Muscle Use, Decreased Breath Sounds Cardiovascular: Present: Regular Rate and Rhythm, Normal S1, S2. No: Murmurs Abdomen: Present: Normal Bowel Sounds. No: Tenderness, Distention, Peritoneal Signs, Rebound, Guarding Back: Present: Normal Inspection. No: CVA Tenderness, Midline Tenderness, Paraspinal Tenderness Upper Extremity: Present: Normal Inspection. No: Cyanosis, Edema Lower Extremity: Present: Normal Inspection. No: Edema Neurological: Present: GCS=15, CN II-XII Intact, Speech Normal, Motor Func Grossly Intact Skin: Present: Warm, Dry, Normal Color. No: Rashes Psychiatric: Present: Alert, Oriented x 3, Normal Insight, Normal Concentration Medical Decision Making ED Course and Treatment: 07/25/17 13:46 EKG shows normal sinus rhythm rate approximately [address] or T-wave changes 07/25/17 14:49 Symptoms have improved. Workup is unremarkable. Discharge home to follow up with PMD. Follow up in ER as needed. - Lab Interpretations Lab Results: 07/25/17 13:50 07/25/17 13:50 Lab Results 07/25/17 13:50: Sodium 141, Potassium 4.0, Chloride 105, Carbon Dioxide 24, Anion Gap 15, BUN 11, Creatinine 0.8, Est GFR ( Amer) > 60, Est GFR (Non- Af Amer) > 60, Random Glucose 90, Calcium 10.0, Magnesium 2.1, Total Bilirubin 0.4, AST 31, ALT 30, Alkaline Phosphatase 97, Lactate Dehydrogenase 379, Total Creatine Kinase 91, Troponin I < 0.01, Total Protein 8.1, Albumin 4.2, Globulin 3.9, Albumin/Globulin Ratio 1.1 07/25/17 13:50: D-Dimer, Quantitative 238 07/25/17 13:50: WBC 8.8 D, RBC 4.75, Hgb 10.4 L, Hct 33.9 L, MCV 71.4 L, MCH 21.9 L, MCHC 30.7 L, RDW 17.5 H, Plt Count 320, MPV 10.1, Gran % 73.6 H, Lymph % (Auto) 19.6 L, [place] % (Auto) 5.3, Eos % (Auto) 1.3 L, Baso % (Auto) 0.2, Gran # 6.47, Lymph # (Auto) 1.7, [place] # (Auto) 0.5, Eos # (Auto) 0.1, Baso # (Auto) 0.02 - RAD Interpretation Narrative RAD Interpretations (Text): 07/25/2017 14:48:58 Chest Xray FINDINGS: LUNGS: No active pulmonary disease. PLEURA: No significant pleural effusion identified, no pneumothorax apparent. CARDIOVASCULAR: No radiographic findings to suggest acute or significant cardiovascular disease. OSSEOUS STRUCTURES: No significant abnormalities. VISUALIZED UPPER ABDOMEN: Normal. OTHER FINDINGS: None. IMPRESSION: No active disease. No significant interval change compared to the prior examination(s). Radiology Orders: 07/25/17 13:30 CHEST PORTABLE [RAD] Stat - Medication Orders Current Medication Orders: Discontinued Medications Ketorolac Tromethamine (Toradol) 15 mg IVP STAT STA Stop: 07/25/17 13:31 Last Admin: 07/25/17 13:40 Dose: 15 mg ZUNILDA Pain Assessment Document 07/25/17 13:40 SRE (Rec: 07/25/17 13:45 SRE [id number]) Pain Reassessment Is this a pain reassessment? Yes Sleep Is patient sleeping during reassessment? No Presence of Pain Presence of Pain Yes Pain Scale Used Pain Scale Used Numeric Location Pain Location Body Site Chest Description Description Intermittent IVP Administration Document 07/25/17 13:40 SRE (Rec: 07/25/17 13:45 SRE [id number]) Charges for Administration # of IVP Administrations 1 Disposition/Present on Arrival - Present on Arrival Any Indicators Present on Arrival: No History of DVT/PE: No History of Uncontrolled Diabetes: No Urinary Catheter: No History of Decub. Ulcer: No History Surgical Site Infection Following: None - Disposition Have Diagnosis and Disposition been Completed?: Yes Diagnosis: Chest wall pain Disposition: HOME/ ROUTINE Disposition Time: 14:50 Patient Plan: Discharge Patient Problems: Current Active Problems Problem Status Onset Chest wall pain Acute Condition: IMPROVED Discharge Instructions (ExitCare): Costochondritis (DC), Chest Pain (ED) Additional Instructions: Tylenol or Advil as directed on bottle as needed. Follow-up with PMD. Follow up in ER as needed. Forms: [employer] ([place]ican)
[2017-07-25 13:09] VITALS: RESP 18; O2SAT 98; BMI 32.5
[2017-07-25 14:02] LABS: BASO # 0.02 K/mm3 (0.0-2.0); BASO % 0.2 % (0.0-3.0); EOS # 0.1 (0.0-0.7); EOS % 1.3 % (1.5-5.0); GRAN # 6.47 (1.4-6.5); GRAN % 73.6 % (50.0-68.0); HEMOGLOBIN 10.4 g/dL (12.0-16.0); LYMPH # 1.7 (1.2-3.4); LYMPH % 19.6 % (22.0-35.0); MEAN CELL VOLUME 71.4 fl (80.0-105.0); MEAN CORPUSCULAR HEMOGLOBIN 21.9 pg (25.0-35.0); MEAN CORPUSCULAR HGB CONC 30.7 g/dl (31.0-37.0); MEAN PLATELET VOLUME 10.1 fl (7.0-11.0); MONO # 0.5 (0.1-0.6); MONO % 5.3 % (1.0-6.0); RBC 4.75 10^6/uL (3.5-6.1); RED CELL DISTRIBUTION WIDTH 17.5 % (11.5-14.5); WHITE BLOOD COUNT 8.8 10^3/ul (4.5-11.0)
[2017-07-25 14:06] LABS: ALB/GLOB RATIO 1.1 (1.1-1.8); ALBUMIN 4.2 g/dL (3.0-4.8); ALT/SGPT 30 U/L (7-56); AST/SGOT 31 U/L (14-36); BLOOD UREA NITROGEN 11 mg/dL (7-21); GFR AFRICAN-AMERICAN > 60; GFR NON-AFRICAN AMERICAN > 60
[2017-07-25 14:17] LABS: TROPONIN I < 0.01 ng/mL
--- NOTE | 2017-07-25 14:50 | RAD ---
HISTORY: Chest pain COMPARISON: 01/07/2017 FINDINGS: LUNGS: No active pulmonary disease. PLEURA: No significant pleural effusion identified, no pneumothorax apparent. CARDIOVASCULAR: No radiographic findings to suggest acute or significant cardiovascular disease. OSSEOUS STRUCTURES: No significant abnormalities. VISUALIZED UPPER ABDOMEN: Normal. OTHER FINDINGS: None. IMPRESSION: No active disease. No significant interval change compared to the prior examination(s).
[2017-07-25 16:16] VITALS: BP 120/76; PULSE 76; TEMP 98
--- NOTE | 2017-07-25 22:57 | CARD ---
APPROVED REPORT EKG Measurement Heart [id number] <Conclusion> Normal sinus rhythm Moderate voltage criteria for LVH, may be normal variant Borderline ECG
== END 2017-07-25 15:30 | disposition home or self-care (01) ==
LOC: ED 12:36
DX: R07.89 Other chest pain (principal); D64.9 Anemia, unspecified
CPT/HCPCS: 71045; 80053; 82550; 83615; 83735; 84484; 85025; 85378; 93005; 96374; 99283; J1885

== ENCOUNTER 2018-04-24 05:32 | Emergency (ER) | payer BC, MEDICAID ==
[2018-04-24 05:40] VITALS: BMI 31.2
[2018-04-24 05:44] VITALS: PULSE 78; TEMP 98.8
--- NOTE | 2018-04-24 05:56 | ED PDOC ---
Arrival/HPI - General Chief Complaint: Abnormal Skin Integrity Time Seen by Provider: 04/24/18 05:40 Historian: Patient - History of Present Illness Narrative History of Present Illness (Text): 04/24/18 05:56 Lisa Carvajal is a 28 year old female, with no significant past medical history, who presents to the Emergency department complaining of nose bleeds. Patient states she has been experiencing nose bleeds in the morning, which have resolved on their own, and notes she works in a dry, [place] environment during the day. Patient also reports some itchy, skin irritation to her chest and underneath her breasts. Patient denies any fever, chills, cough, wheezing, shortness of breath, nausea, vomiting, headache, dizziness, changes in diet/detergents/soaps/lotions, or any other complaints. Symptom Onset: Gradual Symptom Course: Unchanged Activities at Onset: Light Context: Home, Work Past Medical History - Provider Review Nursing Documentation Reviewed: Yes - Past History Past History: No Previous - Infectious Disease Hx of Infectious Diseases: None - Tetanus Immunization Tetanus Immunization: Unknown - Reproductive Menopause: No - Past Medical History Past Medical History: No Previous - Cardiac Hx Cardiac Disorders: No - Pulmonary Hx Respiratory Disorders: No - Neurological Hx Neurological Disorder: No - HEENT Hx HEENT Disorder: No - Renal Hx Renal Disorder: No - Endocrine/Metabolic Hx Endocrine Disorders: No - Hematological/Oncological Hx Blood Disorders: Yes Hx Anemia: Yes - Integumentary Hx Dermatological Disorder: No - Musculoskeletal/Rheumatological Hx Musculoskeletal Disorders: Yes Other/Comment: Patients states that she has been told her "spine is crooked". - Gastrointestinal Hx Gastrointestinal Disorders: No Other/Comment: pre menstrual cramps - Genitourinary/Gynecological Hx Genitourinary Disorders: No - Psychiatric Hx Depression: No Hx Emotional Abuse: No Hx Physical Abuse: No Hx Substance Use: No - Past Surgical History Past Surgical History: No Previous - Anesthesia Hx Anesthesia: No Hx Anesthesia Reactions: No Hx Malignant Hyperthermia: No - Suicidal Assessment Feels Threatened In Home Enviroment: No Family/Social History - Physician Review Nursing Documentation Reviewed: Yes Family/Social History: Unknown Family HX Smoking Status: Light Smoker < 10 Cigarettes Daily Hx Alcohol Use: No Hx Substance Use: No Hx Substance Use Treatment: No Allergies/Home Meds Allergies/Adverse Reactions: Allergies No Known Allergies Allergy (Verified 07/25/17 12:50) Home Medications: Home Meds Medication Instructions Recorded Confirmed RX: No Known Home Med 07/25/17 04/24/18 Review of Systems - Physician Review All systems were reviewed & negative as marked: Yes - Review of Systems Constitutional: Normal. absent: Fevers Eyes: Normal ENT: Epistaxis Respiratory: Normal. absent: SOB, Cough Cardiovascular: Normal. absent: Chest Pain Gastrointestinal: Normal. absent: Abdominal Pain, Diarrhea, Nausea, Vomiting Genitourinary Female: Normal. absent: Dysuria, Frequency, Hematuria, Urine Output Changes Musculoskeletal: Normal. absent: Back Pain, Neck Pain Skin: Rash Neurological: Normal. absent: Headache, Dizziness Endocrine: Normal Hemo/Lymphatic: Normal Psychiatric: Normal Physical Exam Vital Signs Reviewed: Yes Vital Signs Temp Pulse Resp BP Pulse Ox 04/24/18 05:40 98.8 F 78 18 120/82 99 Temperature: Afebrile Blood Pressure: Normal Pulse: Regular Respiratory Rate: Normal Appearance: Positive for: Well-Appearing, Non-Toxic, Comfortable Pain Distress: None Mental Status: Positive for: Alert and Oriented X 3 - Systems Exam Head: Present: Atraumatic, Normocephalic Pupils: Present: PERRL Extroacular Muscles: Present: EOMI Conjunctiva: Present: Normal Ears: Present: Normal, NORMAL TM, Normal Canal. No: Erythema, TM Bulging, Fluid, TM Perf Mouth: Present: Moist Mucous Membranes Pharnyx: Present: Normal. No: ERYTHEMA, EXUDATE, TONSILS ENLARGED, Peritonsilar Swelling, Uvular Deviation, Muffled/Hoarse Voice, Strider, Soft Palate/Uvular Edema Nose (External): Present: Atraumatic Nose (Internal): Present: Normal Inspection Neck: Present: Normal Range of Motion. No: Meningeal Signs, MIDLINE TENDERNESS, Paraspinal Tenderness Respiratory/Chest: Present: Clear to Auscultation, Good Air Exchange. No: R espiratory Distress, Accessory Muscle Use Cardiovascular: Present: Regular Rate and Rhythm, Normal S1, S2. No: Murmurs Abdomen: No: Tenderness, Distention, Peritoneal Signs Back: Present: Normal Inspection. No: CVA Tenderness, Midline Tenderness, Paraspinal Tenderness Upper Extremity: Present: Normal Inspection. No: Cyanosis, Edema Lower Extremity: Present: Normal Inspection. No: Edema Neurological: Present: GCS=15, CN II-XII Intact, Speech Normal Skin: Present: Warm, Dry, Rashes (Dry skin irritation to chest and beneath breasts), Normal Color Psychiatric: Present: Alert, Oriented x 3, Normal Insight, Normal Concentration Medical Decision Making ED Course and Treatment: 04/24/18 05:56 Impression: 28 year old female complaining of nose bleeds and skin irritation to chest. Plan: -- Reassess and disposition Progress Notes: Patient is in no acute distress. I have discussed the results and plan with the patient, who expresses understanding. Patient in agreement with plan to be discharged home. Patient is stable for discharge. Patient was instructed to follow up with physician or return if symptoms worsen or new concerning symptoms arise. - Scribe Statement The provider has reviewed the documentation as recorded by the Christyibnicola Viera Provider Scribe Attestation: All medical record entries made by the Scribe were at my direction and personally dictated by me. I have reviewed the chart and agree that the record accurately reflects my personal performance of the history, physical exam, medical decision making, and the department course for this patient. I have also personally directed, reviewed, and agree with the discharge instructions and disposition. Disposition/Present on Arrival - Present on Arrival Any Indicators Present on Arrival: No History of DVT/PE: No History of Uncontrolled Diabetes: No Urinary Catheter: No History of Decub. Ulcer: No History Surgical Site Infection Following: None - Disposition Have Diagnosis and Disposition been Completed?: Yes Diagnosis: Dermatitis Disposition: HOME/ ROUTINE Disposition Time: 06:18 Condition: GOOD Discharge Instructions (ExitCare): Eczema (Atopic Dermatitis) Additional Instructions: use dove soap and nasal saline and skin moisturizer Referrals: Don Mesa MD [Staff Provider] - Follow up with primary Forms: [facility] ([place]ian), WORK NOTE
[2018-04-24 06:38] VITALS: BP 122/78; RESP 17; O2SAT 100
== END 2018-04-24 06:37 | disposition home or self-care (01) ==
LOC: ED 05:32
DX: L29.9 Pruritus, unspecified (principal); L30.9 Dermatitis, unspecified